=== PATIENT | male | born 1960 | race Caucasian/White ===

== ENCOUNTER 2025-05-07 16:46 | Emergency (ER) | payer OTHER, SELFPAY ==
--- NOTE | 2025-05-07 17:04 | XR_ITS ---
Examination: Duplex scan of the lower extremity, unilateral right complete Date and time of exam: May 07, 2025, 2015 hours. INDICATIONS: Right hip and leg pain beginning 3 days ago Technique: Duplex scan of the extremity veins using B-mode/grayscale imaging and Doppler spectral analysis and color flow Attention is directed to internal echogenicity, compression and augmentation involving these veins, color flow assessment, spectral analysis Findings: Major deep venous structures in the extremity demonstrate normal course and caliber. There is no evidence of deep vein thrombosis. Normal color flow and spectral analysis Right knee popliteal cyst 31 mm Impression: Negative for DVT..
[2025-05-07 17:13] VITALS: BP 164/90; PULSE 90; RESP 17; TEMP 36.7; O2SAT 98; BMI 27.3
[2025-05-07 18:27] LABS: Basophils # (Auto) 0.1 Thou/mm3 (0.0-0.2); Basophils % (Auto) 1 % (0-2.5); Eosinophils # (Auto) 0.3 Thou/mm3 (0.0-0.5); Eosinophils % (Auto) 5 % (0-10); Hematocrit 41.9 % (41.0-53.0); Hemoglobin 14.8 g/dL (13.5-16.0); Immature Granulocytes Auto 0.01 Thou/mm3 (0.00-0.00); Lymphocytes # (Auto) 2.2 Thou/mm3 (1.0-4.8); Lymphocytes % (Auto) 33 % (10-50); Mean Corpuscular HGB Conc 35.3 g/dl (31.0-37.0); Mean Corpuscular Hemoglobin 30.0 pg (25.0-35.0); Mean Corpuscular Volume 85 fL (80-100); Monocytes # (Auto) 0.7 Thou/mm3 (0.0-0.8); Monocytes % (Auto) 10 % (0-12); Neutrophils # (Auto) 3.3 Thou/mm3 (1.8-7.7); Neutrophils % (Auto) 51 % (37-80); Nucleated Red Blood Cell # 0.00 Thou/mm3 (0.00-0.00); Nucleated Red Blood Cell % 0 /100 WBC (0); Platelet Count 197 Thou/mm3 (140-440); RDW Standard Deviation 39.8 fL (35.1-43.9); Red Blood Count 4.93 Miln/mm3 (4.50-5.90); White Blood Count 6.5 Thou/mm3 (3.8-10.6)
[2025-05-07 18:48] LABS: Alanine Aminotransferase 71 U/L (10-49); Albumin, Serum 4.3 gm/dL (3.4-4.8); Albumin/Globulin Ratio 1.5 (1.2-2.2); Alkaline Phosphatase 81 U/L (46-116); Anion Gap 11 (7-16); Aspartate Amino Transferase 62 U/L (0-34); BUN/Creatinine Ratio 15 Ratio (12-20); Bilirubin,Total 0.9 mg/dL (0.3-1.2); Blood Urea Nitrogen 16 mg/dL (9-23); Calcium 9.6 mg/dL (8.3-10.6); Calcium (Corrected) 9.6 mg/dL (8.5-10.1); Carbon Dioxide 21.4 mMol/L (20.0-31.0); Chloride 110 mMol/L (98-107); Creatinine (Component) 1.1 mg/dL (0.6-1.3); Estimated Creatinine Clearance 63.9 mL/min (>60); Globulin 2.8 gm/dL (2.3-3.5); Glucose 92 mg/dL (74-106); Osmolality,Calculated 284 (275-295); Potassium 3.9 mMol/L (3.4-5.1); Sodium 142 mMol/L (136-145); Total Protein 7.1 gm/dL (5.7-8.2); eGFR > 60 See Note
--- NOTE | 2025-05-07 20:52 | PD.EDSKIN ---
ED Skin Abcess FB-RME/HPI General Chief complaint: Extremity Injury, Lower Stated complaint: BACK PAIN, LEG PAIN Time Seen by Provider: 05/07/25 17:03 Arrival date/time: 05/07/25 16:46 Limitations: no limitations RME / HPI RME / HPI narrative: 64-year-old male who is brought in for medical clearance and for assessment for possible right leg DVT. He has a 2-day history of mild low back pain, hip pain, without dyspnea or chest pain. He has right lower leg edema. He has right leg erythema and warmth. He has a history of hypertension. No known thrombus in the past. He is not taking any anticoagulation medication. There are no other acute complaints. Related Data Previous Rx's ?Medication ?Instructions ?Recorded ibuprofen 600 mg tablet 600 mg PO Q8H PRN pain #20 tabs 05/07/25 sulfamethoxazole 800 1 tab PO BID #14 tabs 05/07/25 mg-trimethoprim 160 mg tablet (Bactrim DS) Allergies Allergy/AdvReac Type Severity Reaction Status Date / Time No Known Drug Allergies AdvReac Unknown Verified 07/29/18 12:06 Review of Systems Review of Systems Systems Reviewed: All systems reviewed, normal except as documented ED Exam General Limitations: Present no limitations General appearance: Present alert and in no apparent distress Head Head exam: Present atraumatic Eye Eye exam: Present normal appearance, PERRL and EOMI ENT ENT exam: Present normal exam, normal oropharynx and mucous membranes moist Neck Neck exam: Present normal inspection, full ROM and trachea midline Chest Chest inspection: Present normal inspection and symmetric chest wall rise Respiratory Respiratory exam: Present normal lung sounds bilaterally Cardiovascular Cardiovascular exam: Present regular rate, normal rhythm and normal heart sounds Abdominal Exam Abdominal exam: Present soft and normal bowel sounds Extremities Exam Extremities exam: Present normal inspection and full ROM Back Exam Back exam: Present normal inspection and full ROM Neurological Exam Neurological exam: Present alert and oriented X3 Psychiatric Psychiatric exam: Present normal affect and normal mood Skin Skin exam: Present warm, dry, intact and other (Mild induration and erythema at the right anterior lower leg. No fluctuance or discharge is present.) Course Quality Measures none Orders Category Date Time Status US venous doppler LE RT Stat Exams 05/07/25 17:04 Completed CBC Stat Lab 05/07/25 17:55 Completed CMP [Comprehensive Metabolic Panel] Stat Lab 05/07/25 17:55 Completed Trimethoprim/Sulfa 160/800 Ds [Bactrim Ds] Med 05/07/25 20:52 Discontinued 1 tab PO X1 ONE Vital Signs Vital signs: Vital Signs Temperature 98.1 F 05/07/25 17:13 Pulse Rate 90 05/07/25 17:13 Respiratory Rate 17 05/07/25 17:13 Blood Pressure 164/90 H 05/07/25 17:13 Pulse Oximetry (%) 98 05/07/25 17:13 Oxygen Delivery Method Room Air 05/07/25 17:13 Skin / Abscess / Foreign Body MDM Narrative MDM Narrative:: 64-year-old male who is brought in for medical clearance and for assessment for possible right leg DVT. He has a 2-day history of mild low back pain, hip pain, without dyspnea or chest pain. He has right lower leg edema. He has right leg erythema and warmth. He has a history of hypertension. No known thrombus in the past. He is not taking any anticoagulation medication. There are no other acute complaints. On exam patient is nontoxic-appearing and in no visible signs distress. His exam is consistent with lower leg edema. He started on antibiotics for this. CBC, CMP, and lower leg Doppler is unremarkable. Patient will continue antibiotics as prescribed. He will also take ibuprofen as prescribed. Patient may return as needed for any worsening emergent changes. Patient data External records reviewed:: None Clinical information provided by:: patient and law enforcement Social determinants that could affect healthcare access:: none Patient has the following chronic illnesses:: n/a How is presenting disease/condition affected by chronic disease/condition?: no chronic disease Evaluation data The following diagnostics were reviewed and interpreted by me:: lab results (CBC and metabolic panel are unremarkable) and radiology exam(s) (Doppler of the lower leg reveals no DVT) Lab and/or radiology exams considered but not ordered:: n/a Interpretation Summary: No DVT Medications / Prescriptions Medications or Prescriptions considered but not ordered:: n/a Medication administrations:: Medication Administration History Discontinued Medications Trimethoprim/Sulfamethoxazole (Trimethoprim/Sulfa 160/800 Ds Tablet) 1 tab PO X1 ONE Stop: 05/07/25 20:53 See above Consultations Consultation(s) initiated? (list below): No Diagnosis Skin/Abscess Differential Diagnosis: abscess of skin or subcutaneous tissue, cellulitis, eczema, impetigo and contact dermatitis Most likely diagnosis given after review of the tests above:: Cellulitis Admission Indicated Admission indicated?: not indicated Admission Request Was there a request for admission?: No Disposition Plan Disposition Plan: Discharge Discharge Attestation Discharge Attestation: The patient and all family members were given an opportunity to ask questions and understood the discharge instructions. Discharge instructions specifically effects, indications for sooner follow up or return to the emergency department, and the expected course of current diagnosis. Patient condition: Stable Discharge Plan Plan Patient Disposition: Skilled Nursing/Court/Law Patient condition on transfer: Stable Prescriptions/Referrals Prescriptions/Med Rec: New sulfamethoxazole-trimethoprim [Bactrim DS] 800-160 mg tablet 1 tab PO BID Qty: 14 0RF ibuprofen 600 mg tablet 600 mg PO Q8H PRN (Reason: pain) Qty: 20 0RF Referrals: No Primary/Family,Physician [Primary Care Provider] - In 1 week Problem List Clinical Impression: Cellulitis, Lumbago Patient/Caregiver Discharge Instructions Education Materials: Relieving Back Pain, ED Cellulitis Additional Instructions: - Use the provided antibiotics as prescribed. - Use the provided anti-inflammatory for pain and to reduce inflammation. - Return to the emergency room at anytime for any worsening changes as needed. Print Language: Azeri
[2025-05-07 21:16] VITALS: BP 152/105; PULSE 63; RESP 17; TEMP 36.7; O2SAT 95
[2025-05-07] MEDS: TRIMETHOPRIM/SULFA 160/800 DS TABLET 1 TAB PO (21:45)
== END 2025-05-07 21:55 ==
PROVIDERS: Physician Assistant Medical; Emergency Provider Family Medicine
DX: L03.115 Cellulitis of right lower limb (principal); I10 Essential (primary) hypertension; M54.50 Low back pain, unspecified
CPT/HCPCS: 36415; 80053; 85025; 93971; 99284; A9270